=== PATIENT | male | born 1970 | race Caucasian/White ===

== ENCOUNTER 2016-10-17 16:21 | Emergency (ER) | payer BC ==
[~2016-10-17] VITALS: Wt 109.0 kg
--- NOTE | 2016-10-17 20:55 | ERA ---
ER Documentation Chief Complaint Date/Time DATE: 10/17/16 TIME: 20:55 Chief Complaint rectal bleeding, states red blood in toilet, denies hemmorroids. HPI 46-year-old M with a history of obesity presents with painless bright red blood per rectum 1 day. Patient reports intermittent bright red blood per rectum associated with stooling over the last day. The blood is coated on top of the stool and denies any melena. Denies any hematemesis or coffee-ground emesis. No pain in the abdomen. No fevers or chills. No prior history of this and reports that her normally being constipated. Patient denies any symptoms of anemia but was very scared to see himself bleeding from the rectum. No pain with stooling. He does have an outpatient GI referral but has not scheduled an appointment ROS All systems reviewed and are negative except as per history of present illness. Allergies Allergies: Coded Allergies: cortisone (Verified Allergy, Unknown, vomiting, migraine, 10/17/16) PMhx/Soc History of Surgery: Yes (R shoulder sx, bilat eyes laser sx) Anesthesia Reaction: No Hx Neurological Disorder: No Hx Respiratory Disorders: No Hx Cardiac Disorders: Yes (HTN, high cholesterol) Hx Psychiatric Problems: Yes (anxiety) Hx Miscellaneous Medical Probl: Yes (L knee miniscus tear, R shoulder dislocation) Hx Alcohol Use: No Hx Substance Use: No Hx Tobacco Use: Yes Smoking Status: Never smoker FmHx Family History: No coronary disease, No diabetes, No other Physical Exam Vitals Vital Signs Date Time Temp Pulse Resp B/P Pulse Ox O2 Delivery O2 Flow Rate FiO2 10/17/16 16:26 97.7 84 20 142/89 98 Physical Exam General: alert, well appearing, and in no distress, AOx4. normal pulse oximetry. Head: Atraumatic, normocephalic Eyes: pupils equal and reactive, extraocular eye movements intact, sclera anicteric. Ears: bilateral TM's and external ear canals normal. Nose: normal and patent, no erythema, discharge or polyps. Oropharynx: moist mucous membranes, pharynx normal without lesions. Neck: supple, no significant adenopathy. Heart: normal rate, regular rhythm, normal S1, S2, no murmurs, rubs, clicks or gallops. Peripheral pulses: normal Lungs: clear to auscultation, no wheezes, rales or rhonchi, symmetric air entry and normal work of breathing. Abdomen: soft, nontender, nondistended, no masses or organomegaly Rectal: no external hemorrhoids, soft brown stool, guaiac + Extremities: no joint tenderness, deformity or swelling. Skin: normal coloration and turgor, no rashes, no suspicious skin lesions noted. Neurologic: Alert, moving all extremities symmetrically x 4, sensation grossly intact, no gross deficits Result Diagram: 10/17/16212910/17/162129 Results 24 hrs Laboratory Tests Test 10/17/16 21:30 Anion Gap 19 Basophils # 0.010^3/ul Basophils % 0.7% Blood Morphology Comment Blood Urea Nitrogen 14mg/dl Calcium Level 9.1mg/dl Carbon Dioxide Level 24mmol/L Chloride Level 104mmol/L Creatinine 0.76mg/dl Eosinophils # 0.410^3/ul Eosinophils % 7.0% Glucose Level 112mg/dl Hematocrit 43.2% Hemoglobin 14.4g/dl Lymphocytes # 2.310^3/ul Lymphocytes % 37.5% Mean Corpuscular Hemoglobin 28.8pg Mean Corpuscular Hemoglobin Concent 33.5g/dl Mean Corpuscular Volume 86.1fl Mean Platelet Volume 7.1fl Monocytes # 0.810^3/ul Monocytes % 12.3% Neutrophils # 2.710^3/ul Neutrophils % 42.5% Nucleated Red Blood Cells # 0.010^3/ul Nucleated Red Blood Cells % 0.0/100WBC Platelet Count 12866^3/UL Potassium Level 3.8mmol/L Red Blood Count 5.0110^6/ul Red Cell Distribution Width 13.2% Sodium Level 143mmol/L White Blood Count 6.310^3/ul Current Medications Medications (Trade) Dose Ordered Sig/Butch Route PRN Reason Start Time Stop Time Status Last Admin Dose Admin Ketorolac Tromethamine (Toradol) 30 mg ONCE STAT IM 10/17/16 21:06 10/17/16 21:08 DC 10/17/16 21:25 Procedures/MDM LAB INTERPRETATION: Labs unremarkable with normal hemoglobin. MEDICAL DECISION MAKIN-year-old M with a history of obesity presents with painless bright red blood per rectum 1 day likely due to internal hemorrhoids or diverticulosis. Patient without any symptoms of anemia and has a normal hemoglobin in the ER. Vitals are unremarkable. Exam unremarkable. Doubt diverticulitis, doubt appendicitis, doubt upper GI bleed, doubt IBD, doubt invasive diarrhea. Patient will follow up with outpatient GI and was given ER return precautions for bleeding. Departure Diagnosis: Primary Impression: Rectal hemorrhage Condition: Good LEDY STARKEY MD Oct 17, 2016 20:55
[2016-10-17] MEDS ORDERED: KETOROLAC 30 MG INJ IM STA (21:06)
[2016-10-17 21:57] LABS: BASOPHILS % 0.7 % (0.0-2.0); EOSINOPHILS # 0.4 10^3/ul (0.0-0.5); HEMATOCRIT 43.2 % (42.0-52.0); HEMOGLOBIN 14.4 g/dl (14.0-18.0); LYMPHOCYTES # 2.3 10^3/ul (0.8-2.9); LYMPHOCYTES % 37.5 % (15.0-51.0); MEAN CORPUSCULAR HEMOGLOBIN 28.8 pg (29.0-33.0); MEAN CORPUSCULAR HGB CONC 33.5 g/dl (32.0-37.0); MEAN CORPUSCULAR VOLUME 86.1 fl (82.0-101.0); MEAN PLATELET VOLUME 7.1 fl (7.4-10.4); MONOCYTE # 0.8 10^3/ul (0.3-0.9); MONOCYTES % 12.3 % (0.0-11.0); NEUTROPHIL # 2.7 10^3/ul (1.6-7.5); NEUTROPHILS % 42.5 % (39.0-77.0); PLATELET COUNT 274 10^3/UL (140-440); RED BLOOD COUNT 5.01 10^6/ul (4.70-6.10); RED CELL DISTRIBUTION WIDTH 13.2 % (11.5-14.5); UNCORRECTED WBC 6.3 10^3/ul (4.8-10.8); WHITE BLOOD COUNT 6.3 10^3/ul (4.8-10.8)
[2016-10-17 21:58] LABS: CONDITION 1
[2016-10-17 22:10] LABS: POTASSIUM 3.8 mmol/L (3.5-5.1)
[2016-10-17 22:13] LABS: CREATININE 0.76 mg/dl (0.61-1.24)
[2016-10-17 22:14] LABS: CALCIUM 9.1 mg/dl (8.4-10.2)
[2016-10-17 22:50] VITALS: BP 135/90; PULSE 69; RESP 16; TEMP 98.9
== END 2016-10-17 22:52 | disposition home or self-care (01) ==
LOC: E/R 16:21
DX: K62.5 Hemorrhage of anus and rectum (principal); R40.2142 Coma scale, eyes open, spontaneous, at arrival to emergency department; R40.2362 Coma scale, best motor response, obeys commands, at arrival to emergency department; R40.2252 Coma scale, best verbal response, oriented, at arrival to emergency department; I10 Essential (primary) hypertension; Z72.0 Tobacco use
CPT/HCPCS: 80048; 85025; J1885; 96372